=== PATIENT | male | born 1970 | race Caucasian/White ===

== ENCOUNTER 2017-05-10 14:04 | Emergency (ER) | payer MEDICAID ==
[~2017-05-10] VITALS: Ht 182.9 cm; Wt 70.5 kg
[2017-05-10 14:08] VITALS: BP 118/89
[2017-05-10] MEDS ORDERED: KETOROLAC 30 MG/ML VIAL IM ONE (14:30)
[2017-05-10] MEDS ORDERED: ACETAMINOPHEN 325 MG TAB PO ONE (14:30)
[2017-05-10] MEDS ORDERED: BACITRACIN OINT 500 UNITS/GM PKT TP ONE (14:30)
[2017-05-10 16:11] VITALS: BP 129/67
== END 2017-05-10 16:05 | disposition home or self-care (01) ==
LOC: MED 14:04
DX: S20.212A Contusion of left front wall of thorax, initial encounter (principal); S90.812A Abrasion, left foot, initial encounter; S90.811A Abrasion, right foot, initial encounter; Y04.8XXA Assault by other bodily force, initial encounter; F17.210 Nicotine dependence, cigarettes, uncomplicated; Z90.89 Acquired absence of other organs
CPT/HCPCS: 71101; 96372; 99284; J1885